=== PATIENT | female | born 1980 | race Caucasian/White ===

== ENCOUNTER 2019-08-28 14:57 | Inpatient (IN) | payer MEDICAID ==
[~2019-08-28] VITALS: Ht 172.7 cm; Wt 63.5 kg
[2019-08-28] MEDS ORDERED: XANAX0.25 MG PO (15:07)
[2019-08-28] MEDS ORDERED: LEXAPRO5 MG PO (15:07)
[2019-08-28] MEDS ORDERED: CLEOCIN HCL150 MG PO (15:08)
[2019-08-28 15:51] LABS: BASOPHILS 0.3 % (0-2); EOSINOPHILS 7.2 % (0-7); HEMATOCRIT 38.4 % (36.0-48.0); HEMOGLOBIN 12.8 g/dL (12-16); IMMATURE GRANULOCYTES 0.2 % (0-5); LYMPHOCYTES 24.8 % (15-50); MCH 30.3 pg (26.0-34.0); MCHC 33.3 g/dL (31.0-37.0); MEAN PLATELET VOLUME 10.2 fL (7.4-10.4); MONOCYTES 5.9 % (2-11); NEUTROPHILS 61.6 % (40-80); PLATELET COUNT 334 10x3/uL (130-400); RBC 4.22 10x6/uL (4.00-5.40); RDW 13.4 % (11.5-14.5); WBC 11.1 10x3/uL (4.8-10.8)
[2019-08-28 15:54] LABS: APTT 32.1 SECONDS (22.8-39.4); INR 1.07 (0.85-1.17); PROTIME 13.4 SECONDS (11.6-15.0)
[2019-08-28 16:02] LABS: ALBUMIN 3.4 g/dL (3.4-5.0); ALKALINE PHOSPHATASE 92 U/L (46-116); ALT (SGPT) 18 U/L (10-68); BILIRUBIN - TOTAL 0.17 mg/dL (0.2-1.3); CALC OSMOLALITY 281 mosm/kg (275-300); CALCIUM 8.6 mg/dL (8.5-10.1); CHLORIDE - SERUM 108 mmol/L (98-107); CREATININE - SERUM 0.6 mg/dL (0.6-1.3); GLUCOSE 96 mg/dL (74-106); POTASSIUM - SERUM 3.6 mmol/L (3.5-5.1); PROTEIN - SERUM 7.4 g/dL (6.4-8.2); SODIUM 143 mmol/L (136-145); UREA NITROGEN 4 mg/dL (7-18); eGFR NON AFRICAN AMERICAN > 90 mL/min (90-120)
[2019-08-28 16:15] LABS: CKMB 0.2 U/L (0.0-3.6); CREATINE KINASE 63 UL (21-215); PRO BNP 96 pg/mL (0-125); TROPONIN-I < 0.017 ng/mL (0.000-0.060)
--- NOTE | 2019-08-28 16:46 | NUR ---
GUAIC STOOL = NEGATIVE. KRISTINA FLYNN NOTIFIED
[2019-08-28 16:47] VITALS: BP 136/64
[2019-08-28 18:38] VITALS: BP 138/67
--- NOTE | 2019-08-28 18:56 | NUR ---
BS REPORT TO KIKI VALENTIN
[2019-08-28 19:39] VITALS: BP 122/83; BMI 21.3
--- NOTE | 2019-08-28 19:55 | NUR ---
RECIEVED REPORT FROM [facility]. PT ARRIVED ON WHEELCHAIR. AAOX4, VSS, NO S/S OF DISTRESS. PT ONLY C/O OF TOOTH PAIN AND LOWER ABDOMINAL PAIN. WILL ADMINISTER PAIN MED WHEN DUE. FAMILY AT BEDSIDE, PT IS A GOOD HX. PIV 22G TO LFA PATENT. PT DENIES ANY FURTHER NEEDS AT THIS TIME. VANC ORDERED FOR 1800 BUT WAS NOT GIVEN IN ER. PT DENIES ANY FURTHER NEEDS AT THIS TIME. WILL CPOC. CL WITHIN REACH, BED IN LOW, SR UP X2.
[2019-08-28 23:24] VITALS: BP 116/76
--- NOTE | 2019-08-29 01:45 | NUR ---
PT STATED THAT SHE SLEPT ON HER ARMS AND ACCIDENTALLY PULLED OUT HER PIV. NO S/S OF BLEEDING NOTED AT THIS TIME. REMOVED IV AND COVERED WITH GAUZE AND TAPE. RESITED A NEW PIV ON RIGHT AC, 22G X1 STICK. PT TOLERATE WELL. PT DENIES ANY FURTHER NEEDS AT THIS TIME. WILL CPOC.
[2019-08-29 05:16] VITALS: BP 117/74
[2019-08-29 06:53] LABS: BASOPHILS 0.3 % (0-2); EOSINOPHILS 9.2 % (0-7); HEMATOCRIT 39.8 % (36.0-48.0); HEMOGLOBIN 12.9 g/dL (12-16); IMMATURE GRANULOCYTES 0.2 % (0-5); LYMPHOCYTES 32.1 % (15-50); MCH 30.1 pg (26.0-34.0); MCHC 32.4 g/dL (31.0-37.0); MCV 92.8 fL (80.0-100.0); MEAN PLATELET VOLUME 10.7 fL (7.4-10.4); MONOCYTES 7.4 % (2-11); NEUTROPHILS 50.8 % (40-80); PLATELET COUNT 313 10x3/uL (130-400); RBC 4.29 10x6/uL (4.00-5.40); RDW 13.7 % (11.5-14.5); WBC 9.2 10x3/uL (4.8-10.8)
[2019-08-29 07:28] LABS: ALBUMIN 3.3 g/dL (3.4-5.0); ALKALINE PHOSPHATASE 93 U/L (46-116); ALT (SGPT) 18 U/L (10-68); BILIRUBIN - TOTAL 0.19 mg/dL (0.2-1.3); CALCIUM 8.2 mg/dL (8.5-10.1); CARBON DIOXIDE 22.6 mmol/L (21.0-32.0); CHLORIDE - SERUM 106 mmol/L (98-107); CREATININE - SERUM 0.5 mg/dL (0.6-1.3); GLUCOSE 110 mg/dL (74-106); MAGNESIUM - SERUM 2.1 mg/dL (1.8-2.4); PHOSPHOROUS 4.3 mg/dL (2.5-4.9); POTASSIUM - SERUM 3.7 mmol/L (3.5-5.1); PROTEIN - SERUM 6.8 g/dL (6.4-8.2); SODIUM 141 mmol/L (136-145); eGFR NON AFRICAN AMERICAN > 90 mL/min (90-120)
[2019-08-29 07:29] LABS: CALC OSMOLALITY 279 mosm/kg (275-300); UREA NITROGEN 6 mg/dL (7-18)
--- NOTE | 2019-08-29 09:00 | NUR ---
PATIENT LINING IN BED, AWAKE, ALERT, AND ORIENTED X 3. DENIES ANY NEEDS. BED IN LOW POSITION, SR UP X 2, WILL CONTINUE TO MONITOR.
--- NOTE | 2019-08-29 11:00 | NUR ---
DR. ZOË BARTON.
--- NOTE | 2019-08-29 13:28 | MORECARE ---
CASE MANAGEMENT DISCHARGE SUMMARY PATIENT: KIRBY BOWEN UNIT: [id number] ADM DATE: 08/28/19 AGE: 39 : [birth year] SEX: F ROOM/BED: D.1206 AUTHOR: LINN LARSON PHYSICIAN: REFERRING PHYSICIAN: LEIDY CAMP MD DATE OF SERVICE: 08/29/19 Discharge Plan Patient Name: KIRBY BOWEN Facility: [facility]:[place] : 1980 Planned Disposition: Anticipated Discharge Date: Discharge Date: Expected LOS: Initial Reviewer: [email or web address] Initial Review Date: 08/29/2019 Generated: 08/29/19 2:28 pm Comments DCP- Discharge Planning Updated by [email or web address]: Christine Horvath on 08/29/19 12:[address] Patient Name: KIRBY BOWEN Admission Status: ER Accout number: [id number] Admission Date: 08-28-2019 : 1980 Admission Diagnosis: Attending: LEIDY CAMP Current LOS: 1 Anticipated DC Date: Planned Disposition: Primary Insurance: [place] [employer] [place] Discharge Planning Comments: CM MET WITH PATIENT AFTER OBTAINING VERBAL CONSENT. STATES PLANS TO DISCHARGE TO HOME. DISCUSSED NEED FOR HH, REHAB OR EQUIPMENT, PATIENT STATES NO NEEDS. CM WILL FOLLOW AND ASSIST NEEDED. Bump Grader Operator: Christine Horvath DCPIA - Discharge Planning Initial Assessment Updated by [email or web address]: Christine Horvath on 08/29/19 1:26 pm * Is the patient Alert and Oriented? Yes * PCP JJ * Pharmacy [facility] * Preadmission Environment Home with Family * ADLs Independent * Other Equipment NONE * List name and contact numbers for known caregivers / representatives who currently or will assist patient after discharge: LOGAN, * Additional services required to return to the preadmission environment? No * Can the patient safely return to the preadmission environment? Yes * Has this patient been hospitalized within the prior 30 days at any hospital? No Patient Name: KIRBY BOWEN Page [phone] at 1328 All edits/amendments must be made on the electronic document DICTATION DATE: 08/29/19 1328 SHELLFISH BED WORKER: YAIR 08/29/19 1328 RPT#: [id number] DC DATE: STATUS: ADM IN [facility] [address] [place] [address] END OF REPORT
[2019-08-29 15:45] VITALS: Ht 172.7 cm; Wt 63.5 kg
[2019-08-29 20:04] VITALS: BP 113/77
[2019-08-29 23:07] VITALS: BP 140/68
[2019-08-30] VITALS: BP 111/71
--- NOTE | 2019-08-30 01:45 | NUR ---
PT OUT OF HER ROOM. STATED SHE WANTS TO WALK AROUND THE HALLAWAYS TO GET SOME AIR.
[2019-08-30 05:54] LABS: BASOPHILS 0.3 % (0-2); EOSINOPHILS 8.9 % (0-7); HEMATOCRIT 35.8 % (36.0-48.0); HEMOGLOBIN 11.7 g/dL (12-16); IMMATURE GRANULOCYTES 0.1 % (0-5); LYMPHOCYTES 33.3 % (15-50); MCH 30.2 pg (26.0-34.0); MCHC 32.7 g/dL (31.0-37.0); MCV 92.3 fL (80.0-100.0); MEAN PLATELET VOLUME 10.5 fL (7.4-10.4); NEUTROPHILS 49.4 % (40-80); PLATELET COUNT 316 10x3/uL (130-400); RBC 3.88 10x6/uL (4.00-5.40); RDW 13.4 % (11.5-14.5); WBC 10.2 10x3/uL (4.8-10.8)
[2019-08-30 07:07] LABS: CALCIUM 8.2 mg/dL (8.5-10.1); CHLORIDE - SERUM 106 mmol/L (98-107); CREATININE - SERUM 0.6 mg/dL (0.6-1.3); GLUCOSE 96 mg/dL (74-106); PHOSPHOROUS 4.4 mg/dL (2.5-4.9); POTASSIUM - SERUM 3.7 mmol/L (3.5-5.1); SODIUM 139 mmol/L (136-145); VANCOMYCIN - TROUGH 8.9 ug/mL (10.0-20.0); eGFR NON AFRICAN AMERICAN > 90 mL/min (90-120)
[2019-08-30 07:10] LABS: CALC OSMOLALITY 275 mosm/kg (275-300); CARBON DIOXIDE 28.3 mmol/L (21.0-32.0); UREA NITROGEN 8 mg/dL (7-18)
--- NOTE | 2019-08-30 07:30 | NUR ---
PT SITTING UP IN BED. RECIEVED COFFEE PER REQUEST. RR EVEN AND UNLABORED. ALERT AND ORIENTED. IV INFUSION COMPLETE. PT SALINE LOCKED. PIV WRAPPED AND DATED. PT STATES SHE IS GOING TO WALK THE HALLS AND GET FRESH AIR. GAIT STEADY. DENIES NEEDS OR PAIN AT THIS TIME. WILL CONTINUE TO MONITOR.
[2019-08-30 08:00] VITALS: BP 107/84
--- NOTE | 2019-08-30 16:11 | NUR ---
D/C INSTRUCTIONS REVIEWED WITH PT AND FAMILY. VERBALIZED UNDERSTANDING AND NO FURTHER QUESTIONS AT THIS TIME. IV D/C WITH CATHETER TIP INTACT. ALL BELONGINGS SENT WITH PT. PT AMBULATED TO PERSONAL VEHICLE PER REQUEST.
--- NOTE | 2019-08-30 17:08 | MORECARE ---
CASE MANAGEMENT DISCHARGE SUMMARY PATIENT: KIRBY BOWEN UNIT: [id number] ADM DATE: 08/28/19 AGE: 39 : [birth year] SEX: F ROOM/BED: D.1206 AUTHOR: LINN LARSON PHYSICIAN: REFERRING PHYSICIAN: LEIDY CAMP MD DATE OF SERVICE: 08/30/19 Discharge Plan Patient Name: KIRBY BOWEN Facility: [facility]:[place] : 1980 Planned Disposition: Home Anticipated Discharge Date: Discharge Date: 08/30/2019 Expected LOS: Initial Reviewer: [email or web address] Initial Review Date: 08/29/2019 Generated: 08/30/19 6:08 pm DCP- Discharge Planning Updated by [email or web address]: Christine Horvath on 08/29/19 12:[address] Patient Name: KIRBY BOWEN Admission Status: ER Accout number: [id number] Admission Date: 08-28-2019 : 1980 Admission Diagnosis: Attending: LEIDY CAMP Current LOS: 1 Anticipated DC Date: Planned Disposition: Primary Insurance: [place] [employer] [place] Discharge Planning Comments: CM MET WITH PATIENT AFTER OBTAINING VERBAL CONSENT. STATES PLANS TO DISCHARGE TO HOME. DISCUSSED NEED FOR HH, REHAB OR EQUIPMENT, PATIENT STATES NO NEEDS. CM WILL FOLLOW AND ASSIST NEEDED. Business Administration Professor: Christine Horvath DCPIA - Discharge Planning Initial Assessment Updated by [email or web address]: Christine Horvath on 08/29/19 1:26 pm * Is the patient Alert and Oriented? Yes * PCP JJ * Pharmacy [facility] * Preadmission Environment Home with Family * ADLs Independent * Other Equipment NONE * List name and contact numbers for known caregivers / representatives who currently or will assist patient after discharge: LOGAN, * Additional services required to return to the preadmission environment? No * Can the patient safely return to the preadmission environment? Yes * Has this patient been hospitalized within the prior 30 days at any hospital? No Last DP export: 08/29/19 12:28 Patient Name: KIRBY BOWEN Page [phone] at 1708 All edits/amendments must be made on the electronic document DICTATION DATE: 08/30/191707 MUNITIONS FACTORY WORKER: YAIR 08/30/191707 RPT#: [id number] DC DATE:08/30/19 STATUS: DIS IN [facility] [address] [place] [address] END OF REPORT
== END 2019-08-30 16:13 | disposition home or self-care (01) | DRG 158 ==
LOC: D.ER 14:57 → D.M3 18:42
PROVIDERS: Family Medicine; ADMIT Emergency Medicine; ATTEND Emergency Medicine
DX: K04.7 Periapical abscess without sinus (principal); F17.213 Nicotine dependence, cigarettes, with withdrawal; J32.9 Chronic sinusitis, unspecified; F41.8 Other specified anxiety disorders; S02.5XXA Fracture of tooth (traumatic), initial encounter for closed fracture; X58.XXXA Exposure to other specified factors, initial encounter